=== PATIENT | male | born 1975 | race Caucasian/White ===

== ENCOUNTER → 2021-05-18 14:00 | Outpatient (BNVA) | payer MEDICAID, SELFPAY | PROVIDERS: Referring Provider Internal Medicine; Visit Provider Internal Medicine Gastroenterology | DX: K59.01 Slow transit constipation (principal) | CPT/HCPCS: 99212 ==

== ENCOUNTER 2021-06-01 15:51 | Outpatient (REF) | payer MEDICAID, SELFPAY ==
--- NOTE | ~2021-06-01 | XR_ITS ---
EXAMINATION: XR ABDOMEN KUB CLINICAL INFORMATION: Slow transit, constipation. COMPARISON: None TECHNIQUE: AP view of the abdomen. FINDINGS: There is moderate scattered stool seen throughout the colon without significant distention. There is no organomegaly. No radiopaque calculi are seen. There is no gross bony abnormality. XR/XR KUB IMPRESSION: Moderate constipation.
[2021-06-01 16:32] LABS: MANUAL DIFF FLAG NO
[2021-06-01 16:35] LABS: Basophils Absolute Auto 0.1 X10*3/uL (0.0-0.2); Basophils Percent Auto 0.9 % (0-2); Eosinophils Absolute Auto 0.1 X10*3/uL (0.0-0.4); Eosinophils Percent Auto 1.7 % (0-4); Hematocrit 39.5 % (42-52); Hemoglobin 13.8 g/dl (14.0-18.0); Imm Gran Abs Auto 0.01 X10*3/uL (0.00-0.03); Imm Gran Pct Auto 0.2 % (0.0-0.4); Lymphocytes Absolute Auto 1.7 X10*3/uL (1.2-4.9); Mean Corpuscular HGB Conc 34.9 g/dl (31.0-36.0); Mean Corpuscular Hemoglobin 30.8 pg (27.0-33.0); Mean Corpuscular Volume 88.2 fL (80-98); Mean Platelet Volume 10.2 fL (9.4-12.4); Monocytes Absolute Auto 0.4 X10*3/uL (0.1-1.2); Monocytes Percent Auto 7.3 % (2-11); Neutrophils Absolute Auto 3.1 X10*3/uL (2.0-8.3); Neutrophils Percent Auto 57.9 % (45-73); Platelet Count 175 X10*3/uL (160-400); Red Blood Count 4.48 X10*6/uL (4.60-5.80); Red Cell Distribution Width 12.2 % (11.0-16.0); White Blood Count 5.4 X10*3/uL (4.8-10.8)
[2021-06-01 16:58] LABS: Alanine Aminotransferase 10 U/L (0-40); Albumin Level 4.8 g/dL (3.5-5.0); Alkaline Phosphatase 88 U/L (39-117); Anion Gap 10 (12-20); Aspartate Amino Transferase 16 U/L (5-37); Bilirubin Total 1.1 mg/dL (0.0-1.0); Blood Urea Nitrogen 11 mg/dL (9-16); Calcium 9.6 mg/dL (8.4-10.2); Carbon Dioxide 22 mmol/L (22-29); Chloride 110 mmol/L (96-108); Estimated Glomerular Filt Rate > 60; Glucose Random 96 mg/dL (60-115); Iron 114 mcg/dL (45-160); Sodium 138 mmol/L (135-145); Total Protein 7.5 g/dL (6.5-8.0)
[2021-06-01 17:01] LABS: Percent Iron Saturation 39 % (15-50); Total Iron Binding Capacity 291 mcg/dL (228-428); Unsaturated Iron Binding 177 ug/dL
[2021-06-01 17:20] LABS: Ferritin 394 ng/mL (20-250)
[2021-06-01 17:30] LABS: Folate 11.1 ng/mL (> or = 4.0); Vitamin B12 339 pg/mL (200-900)
[2021-06-01 17:44] LABS: TSH reflex Free T4 1.14 uIU/mL (0.32-4.0); Vitamin D 25-OH Total 17.2 ng/mL (>30)
[2021-06-05 05:17] LABS: Zinc 88 mcg/dL (60-130)
[2021-06-05 16:26] LABS: Vitamin C 0.3 mg/dL (0.2-2.1)
[2021-06-06 00:56] LABS: Vitamin K1 5412 pg/mL (130-1500)
[2021-06-07 04:47] LABS: Vitamin A 80 mcg/dL (38-98)
[2021-06-07 05:21] LABS: Vitamin B6 16.5 ng/mL (2.1-21.7)
[2021-06-07 15:36] LABS: Alpha-Tocopherol 36.2 mg/L (5.7-19.9); Beta-Gamma Tocopherol 2.3 mg/L (<=4.3)
[2021-06-08 10:52] LABS: Nicotinamide 64 ng/mL; Vit B3 - Nicotinic Acid <20 ng/mL
[2021-06-11 21:07] LABS: Vitamin B5 (Pantothenic Acid) 108 ng/mL (<275)
== END 2021-06-01 15:52 | disposition home or self-care (01) ==
LOC: HO.XRAY 15:51
PROVIDERS: Visit Provider Internal Medicine Gastroenterology
DX: K59.01 Slow transit constipation (principal); E46 Unspecified protein-calorie malnutrition; K75.81 Nonalcoholic steatohepatitis (NASH)
CPT/HCPCS: 36415; 74018; 80053; 82180; 82306; 82607; 82728; 82746; 83520; 83540; 84207; 84443; 84446; 84590; 84591; 84597; 84630; 85025

== ENCOUNTER → 2021-07-20 14:40 | Outpatient (BNVA) | payer MEDICAID, SELFPAY | PROVIDERS: Visit Provider Internal Medicine Gastroenterology | DX: K59.01 Slow transit constipation (principal); R10.13 Epigastric pain | CPT/HCPCS: 99212 ==

== ENCOUNTER 2022-05-09 09:48 | Outpatient (REF) | payer MEDICAID, SELFPAY ==
[2022-05-09 11:27] LABS: MANUAL DIFF FLAG NO
[2022-05-09 11:44] LABS: Basophils Percent Auto 0.6 % (0-2); Eosinophils Absolute Auto 0.1 X10*3/uL (0.0-0.4); Eosinophils Percent Auto 0.7 % (0-4); Hematocrit 40.5 % (42.0-52.0); Hemoglobin 13.7 g/dl (14.0-18.0); Imm Gran Abs Auto 0.02 X10*3/uL (0.00-0.03); Imm Gran Pct Auto 0.3 % (0.0-0.4); Lymphocytes Absolute Auto 1.7 X10*3/uL (1.2-4.9); Lymphocytes Percent Auto 25.4 % (20-40); Mean Corpuscular HGB Conc 33.8 g/dl (31.0-36.0); Mean Corpuscular Hemoglobin 29.7 pg (27.0-33.0); Mean Corpuscular Volume 87.9 fL (80.0-98.0); Monocytes Absolute Auto 0.5 X10*3/uL (0.1-1.2); Monocytes Percent Auto 7.8 % (2-11); Neutrophils Absolute Auto 4.4 x10*3/uL (2.0-8.3); Neutrophils Percent Auto 65.2 % (45-73); Platelet Count 238 X10*3/uL (160-400); Red Blood Count 4.61 X10*6/uL (4.60-5.80); Red Cell Distribution Width 11.3 % (11.0-16.0); White Blood Count 6.8 X10*3/uL (4.8-10.8)
[2022-05-09 12:15] LABS: Alanine Aminotransferase 12 U/L (0-40); Albumin Level 5.2 g/dL (3.5-5.0); Alkaline Phosphatase 71 U/L (39-117); Anion Gap 12 (12-20); Aspartate Amino Transferase 13 U/L (5-37); Bilirubin Total 0.6 mg/dL (0.0-1.0); Blood Urea Nitrogen 13 mg/dL (9-16); C Reactive Protein 0.03 mg/dL (< or = 0.50); Calcium 9.9 mg/dL (8.4-10.2); Carbon Dioxide 29 mmol/L (22-29); Chloride 103 mmol/L (96-108); Estimated Glomerular Filt Rate > 60; Glucose Random 114 mg/dL (60-115); Potassium 4.5 mmol/L (3.3-5.1); Sodium 139 mmol/L (135-145); Total Protein 7.9 g/dL (6.5-8.0)
[2022-05-09 12:37] LABS: Ferritin 247 ng/mL (20-250); Vitamin D 25-OH Total 41.5 ng/mL (>30)
[2022-05-09 12:39] LABS: Folate 10.8 ng/mL (> or = 4.0); Vitamin B12 450 pg/mL (200-900)
[2022-05-09 12:50] LABS: Erythrocyte Sedimentation Rate 2 MM/HR (0-15)
[2022-05-13 15:51] LABS: Zinc 77 mcg/dL (60-130)
[2022-05-13 17:01] LABS: Histamine Plasma <1.5 ng/mL (< OR = 1.8)
[2022-05-14 12:11] LABS: Vitamin K1 2500 pg/mL (130-1500)
[2022-05-14 15:32] LABS: Nicotinamide 54 ng/mL; Vit B3 - Nicotinic Acid <20 ng/mL; Vitamin B5 (Pantothenic Acid) 99 ng/mL (<275)
[2022-05-14 18:07] LABS: Vitamin C 0.7 mg/dL (0.2-2.1)
[2022-05-15 11:06] LABS: Vitamin B6 52.5 ng/mL (2.1-21.7)
[2022-05-15 18:17] LABS: Vitamin A 118 mcg/dL (38-98)
[2022-05-17 01:37] LABS: Alpha-Tocopherol 17.1 mg/L (5.7-19.9); Beta-Gamma Tocopherol <1.0 mg/L (<=4.3)
== END 2022-05-09 09:49 | disposition home or self-care (01) ==
LOC: HO.LAB 09:48
PROVIDERS: PCP Internal Medicine; Visit Provider Internal Medicine Gastroenterology
DX: R10.13 Epigastric pain (principal); E46 Unspecified protein-calorie malnutrition; K59.01 Slow transit constipation; R19.7 Diarrhea, unspecified; K75.81 Nonalcoholic steatohepatitis (NASH)
CPT/HCPCS: 36415; 80053; 82180; 82306; 82607; 82728; 82746; 83088; 83520; 84207; 84446; 84590; 84591; 84597; 84630; 85025; 85652; 86140; 99212

== ENCOUNTER → 2022-08-25 08:12 | Outpatient (REF) | payer MEDICAID, SELFPAY ==
--- NOTE | ~2022-08-25 | NM_ITS ---
EXAMINATION: VT RADIONUCLIDE SOLID FOOD GASTRIC EMPTYING 4-HOUR STUDY CLINICAL INFORMATION: Early satiety. COMPARISON: None TECHNIQUE: A standard meal consisting of 4 oz of Egg Beaters brand tagged with 1000 microcuries Tc-99m Sulfur Colloid, 8 oz water and 2 slices of toast with jelly was administered orally to the patient. Images were obtained using a dual head gamma camera in the anterior and posterior projections over of the stomach immediately post ingestion and at hourly intervals up to 4 hours post ingestion. The anterior and posterior counts at each time interval were averaged using the geometric mean and expressed as percentage of the immediate post ingestion counts. FINDINGS: There is good visualization of activity in the stomach immediately post ingestion. As the study progresses, there is good clearance of activity from the stomach and visualization of progressively increasing small bowel activity. By the end of the study, there is almost no retention noted in the stomach. Retention in the stomach at each time interval was: 1 hour 74% (normal 37%-90%) 2 hours 13% (normal 30%-60%) 3 hours 1% Delayed 4 hour images were not obtained since 99% of the radiotracer was emptied out by 3 hours. VT/VT gastric emptying study IMPRESSION: No evidence of any delayed gastric emptying. Note is however made of relatively rapid emptying, of indeterminate etiology.
== END ==
LOC: HO.NUCMED 08:12
PROVIDERS: PCP Internal Medicine; Visit Provider Internal Medicine Gastroenterology
DX: R68.81 Early satiety (principal)
CPT/HCPCS: 78264; A9541

== ENCOUNTER → 2022-09-05 13:07 | Outpatient (BNVA) | payer MEDICAID, SELFPAY | PROVIDERS: PCP Internal Medicine; Visit Provider Internal Medicine Gastroenterology | DX: K92.89 Other specified diseases of the digestive system (principal); K59.00 Constipation, unspecified; R10.33 Periumbilical pain | CPT/HCPCS: 99212 ==

== ENCOUNTER → 2023-01-27 09:24 | Outpatient (BNVA) | payer MEDICAID, SELFPAY | PROVIDERS: PCP Internal Medicine; Visit Provider Internal Medicine Gastroenterology | DX: R10.13 Epigastric pain (principal) | CPT/HCPCS: 99212 ==

== ENCOUNTER 2025-03-13 12:32 | Outpatient (AMB) | payer MEDICAID, SELFPAY ==
--- OUTSIDE RECORDS SUMMARY | 2025-03-13 12:36 | XMS_ITS | Encounter Summary ---
Author Organization [facility] Address [address] [place] [address] Care Team Providers Care Market Research Senior Project Manager Name Role Phone NeyCinthia DMD Primary Care Provider Encounter Details Date Type Department Care Team (Late st Contact Info) Description 01/12/2016 / Visits On license of [facility] [address] [place] [phone] Makenzie Al, COUNSELOR [facility] [place] [address] Social History Tobacco Use Types Packs/Day Years Used Date Smoking Tobacco: Never Smokeless Tobacco: Never Sex and Gender Information Value Date Recorded Sex Assigned at Not on file Legal Sex Male 6:38 AM PDT Gender Identity Not on file Sexual Orientation Not on file documented as of this encounter Plan of Treatment Not on file documented as of this encounter Visit Diagnoses Not on filedocumented in this encounter Care Teams Market Research Senior Project Manager Relationship Specialty Start Date End Date Cinthia Brewster DMD [address] [place] [address] PCP - General 05/16/19 documented as of this encounter
--- OUTSIDE RECORDS SUMMARY | 2025-03-13 12:36 | XMS_ITS | Encounter Summary ---
Author Organization [facility] Address [address] [place] [address] Care Team Providers Care Leaf Conditioner Name Role Phone NeyCristopherCinthia DMD Primary Care Provider [phone] Encounter Details Date Type Department Care Team (Late st Contact Info) Description 06/09/2016 / Visits Counts include 234 beds at the [facility] [address] [place] [phone] Makenzie Al LICSW [address] [place] [address] Social History Tobacco Use Types Packs/Day Years [...] on filedocumented in this encounter Care Teams Leaf Conditioner Relationship Specialty Start Date End Date Cinthia Brewster DMD [address] [place] [address] PCP - General 05/16/19 documented as of this encounter
--- OUTSIDE RECORDS SUMMARY | 2025-03-13 12:36 | XMS_ITS | Encounter Summary ---
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 (Primary Dx); Post traumatic stress disorder (PTSD) Social History Tobacco Use Types Packs/Day Years Used Date Smoking Tobacco: Never Smokeless Tobacco: Never Sex and Gender Information Value Date Recorded Sex Assigned at Not on file Legal Sex Male 6:38 AM PDT Gender Identity Not on file Sexual Orientation Not on file documented as of this encounter Plan of Treatment Not on file documented as of this encounter Visit Diagnoses Diagnosis Other depression due to general medical condition- Primary Depressive disorder, not elsewhere classified Post traumatic stress disorder (PTSD) Posttraumatic stress disorder documented in this encounter Care Teams Gyroscopic Engineering Technician Relationship Specialty Start Date End Date NeyCinthiaGITA [address] [place] [address] PCP - General 05/16/19 documented as of this encounter
--- OUTSIDE RECORDS SUMMARY | 2025-03-13 12:36 | XMS_ITS | Clinical Summary ---
Author Organization [facility] Address [address] [facility] 7 [place] [address] Care Team Providers Care Admin Assistant Name Role Phone Unavailable Primary Care Provider Unavailabl e Allergies No known active allergies Medications dexlansoprazole (Dexilant) [address] capsule dexilant 60 mg cpdr Active gabapentin (Neurontin) 300 MG capsule gabapentin 300 mg caps Active fenofibrate (Triglide) 160 MG tablet TAKE 1 TABLET (160 MG) BY ORAL ROUTE ONCE DAILY 3 Active Social History Tobacco Use Types Packs/Day Years Used Date Smoking Tobacco: Every Day Cigarettes Tobacco Cessation:Ready to Q uit: Not Asked; Counseling Given: Not Answered Sex and Gender Information Value Date Recorded Sex Assigned at Male 11/17/2022 3:52 PM EST Legal Sex Male 3:49 PM EST Gender Identity Male 11/17/2022 3:52 PM EST Sexual Orientation Straight 11/17/2022 3: 52 PM EST Plan of Treatment Health Maintenance Due Date Last Done Comments CT Colonography 1977 Colonoscopy 1977 Colorectal Cancer Screening 1977 Dental Oral Exam 1977 Dental Prophylaxis 1977 Dental X-Ray: Bitewings 1977 Dental X-Ray: Full Mouth 1977 Depression Screening 1977 FIT DNA/Cologuard 1977 FIT 1977 FOBT 1977 HIV Screening 1977 Lipid Panel 1977 SDOH Screening 1977 Sigmoidoscopy 1977 Disability Screening 1977 Alcohol/Substance Use Screening 1989 Tobacco Screening 1989 Family Planning (PISQ) 1992 Hepatitis C Screening 1995 DTaP/Tdap/Td Vaccines (1 - Tdap) 1996 Pneumococcal Vaccine: Pediatrics (0 to 5 Years) and At-Risk Patients (6 to 49) Years) (1 of 2 - PCV) 1996 Hepatitis B Vaccines (2 of 3 - 19+ 3-dose series) 06/07/2013 05/10/2013 COVID-19 Vaccine (3 - 2023- season) 2024 01/23/2021, 12/26/2020 Influenza Vaccine (#1) 2024 , 09/04/2021, 08/05/2020, Additional history exists Zoster Vaccines (1 of 2) 2027 RSV Patients and Patients Aged 60 years or older (1 - 1-dose 75+ series) 2052 HIB Vaccines Aged Out No longer eligi ble based on patient's age to complete this topic HPV Vaccines Aged Out No longer eligi ble based on patient's age to complete this topic Hepatitis A Vaccines Aged Out No long er eligible based on patient's age to complete this topic IPV Vaccines Aged Out No longer eligi ble based on patient's age to complete this topic Meningococcal B Vaccine Aged Out No l onger eligible based on patient's age to complete this topic Meningococcal Vaccine Aged Out No emmy joy eligible based on patient's age to complete this topic RSV under 20 months Aged Out No longe r eligible based on patient's age to complete this topic Rotavirus Vaccines Aged Out No longer eligible based on patient's age to complete this topic Insurance [facility] MEDICAID STAND ADULT
--- OUTSIDE RECORDS SUMMARY | 2025-03-13 12:36 | XMS_ITS | Encounter Summary ---
Author Organization [facility] Address [address] [place] [address] Care Team Providers Care Internal Grinder Set Up Operator Name Role Phone Cinthia Brewster DMD Primary Care Provider Encounter Details Date Type Department Care Team (Late st Contact Info) Description 11/13/2015 Behavioral Health Visit [facility] [address] [place] [phone] Makenzie Al, COUNSELOR [address] [place] [address] Social History Tobacco Use Types Packs/Day Years Used Date Smoking Tobacco: Never Assessed Sex and Gender Information Value Date Recorded Sex Assigned at Not on file Legal Sex Male 6:38 AM PDT Gender Identity Not on file Sexual Orientation Not on file documented as of this encounter Miscellaneous Notes * Patient Instructions - MELISSA Barnes - 07/22/2016 9:10 AM EDT If you are not able to keep your appointment please call [phone] hours before your appointment to cancel or reschedule. documented in this encounter Plan of Treatment Not on file documented as of this encounter Visit Diagnoses Not on filedocumented in this encounter Care Teams Internal Grinder Set Up Operator Relationship Specialty Start Date End Date Cinthia Brewster DMD [address] [place] [address] PCP - General 05/16/19 documented as of this encounter
--- OUTSIDE RECORDS SUMMARY | 2025-03-13 12:36 | XMS_ITS | Clinical Summary ---
Author Organization [facility] Address [address] [place] [address] Care Team Providers Care Fruit Cutter Name Role Phone Cinthia Brewster DMD Primary Care Provider [phone] Source Comments PLEASE NOTE, if this patient is a minor, it may be UNLAWFUL to discuss sensitive information that is contained in these records (such as FAMILY PLANNING, MENTAL HEALTH or SUBSTANCE ABUSE) with the minor patient's parent or other person without the patient's specific authorization.[facility] Allergies No known active allergies Medications clindamycin (CLEOCIN) 150 mg capsuleIndicatio ns:Infection of tooth Take 1 Cap by mouth 3 (three) times daily 21 Cap 09/09/2017 Active clindamycin HCl (CLEOCIN) 150 mg capsuleIndicatio ns:Infection of tooth Take 1 Cap by mouth 3 (three) times daily 21 Cap 11/20/2017 Active Active Problems No known active problems Immunizations Immunization Administration Dates Next Due Hep B, Adult/Adol (ENERGIX/RECOMBIVAX) 3 Moderna COVID-19 Vaccine, re d cap blue label, 12+ Primary Series 01/23/2021,12/26/2020 Social History Tobacco Use Types Packs/Day Years Used Date Smoking Tobacco: Former Cigarettes Smokeless Tobacco: Never Tobacco Cessation:Counseling Given: Not Answered Social Connections Answer Date Recorded Connectedness 0 07/10/2024 Financial Resource Strain Answer Date R ecorded Financial Resource Strain 0 2023 Stress Answer Date Recorded Stress 0 05/02/2024 Physical Activity Answer Date Recorded Physical Activity 0 05/02/2024 Food Insecurity Answer Date Recorded Food 0 07/18/2024 Transportation Needs Answer Date Record ed Transportation 0 05/02/2024 Housing Stability Answer Date Recorded Housing 0 05/02/2024 Safety and Environment Answer Date Pj rded Safety 0 05/02/2024 Utilities Answer Date Recorded Utilities 0 05/02/2024 Employment Answer Date Recorded Stress 0 07/10/2024 Sex and Gender Information Value Date Recorded Sex Assigned at Not on file Legal Sex Male 6:38 AM PDT Gender Identity Not on file Sexual Orientation Not on file Last Filed Vital Signs Vital Sign Reading Time Taken Comments Blood Pressure 113/75 05/13/2024 11:10 AM EDT Pulse 62 05/13/2024 11:10 AM EDT Temperature - - Respiratory Rate - - Oxygen Saturation - - Inhaled Oxygen Concentration - - Weight - - Height - - Body Mass Index - - Plan of Treatment Health Maintenance Due Date Last Done Comments Anxiety Screening 1977 Dental FMX/Pano 1977 Dental Prophy 1977 Diabetes Screening 1977 Hepatitis C Screening 1977 Lipid Screening 1977 HIV Screening 1992 Imm-DTaP/Tdap/Td (1 - Tdap) 1996 Imm-Hepatitis B (2 of 3 - 19 + 3-dose series) 06/07/2013 05/10/2013 CT Colonography 2022 Colonoscopy 2022 Colorectal Cancer Screening 2022 FIT/gFOBT 2022 Fecal DNA 2022 Flexible Sigmoidoscopy 2022 [id number] ( - season) 2024 04/03/2 021, 12/26/2020 Imm-Influenza (#1) 2024 09/04/2021, 1 , 09/24/2017, Additional history exists Alcohol and Drug Screen 10/23/2024 Depression Annual Screen 10/23/2024 Hypertension Screening (#1) 05/13/2025 Tobacco Screening 05/13/2025 05/13/2024 Dental BW 05/15/2025 05/13/2024 Dental Examination 05/15/2025 05/13/2024 Procedures Procedure Name Priority Date/Time Associated Diagnosis Comments BITEWINGS - FOUR RADIOGRAPHIC IMAGES Routine 05/13/2024 11:00 AM EDT Encounter for dental examination Full COMP ORAL EVALUATION - NEW/ESTABLISHED PATIENT Routine 05/13/2024 11:00 AM EDT Encounter for dental examination from Last 3 Months or Most Recently Relevant to Health Maintenance Insurance HEALTH SAFETY [place] [facility] [facility] [place] Care Teams Fruit Cutter Relationship Specialty Start Date End Date Cinthia Brewster DMD [address] [place] [address] PCP - General 05/16/19
--- OUTSIDE RECORDS SUMMARY | 2025-03-13 12:36 | XMS_ITS | Encounter Summary ---
Author Organization [facility] Address [address] [place] [phone] Care Team Providers Care Electronic Communications Technician Name Role Phone Turner Galicia MD Primary Care Provider [phone] Encounter Details Date Type Department Care Team (Late st Contact Info) Description 08/20/2024 4:39 PM EDT Hospital Encounter TH HISTORIC ENCOUNTERS EASTERN CONVERSION ONLY Mohamud Carias, DO [address] [place] [address] Social History Tobacco Use Types Packs/Day Years [...] on filedocumented in this encounter Care Teams Electronic Communications Technician Relationship Specialty Start Date End Date Turner Galicia MD [address] [place] [address] PCP - General Internal Medicine 08/18/18 documented as of this encounter
--- OUTSIDE RECORDS SUMMARY | 2025-03-13 12:36 | XMS_ITS | Clinical Summary ---
Author Organization [address] [place] [address] Address [address] [place] [address] Phone Care Team Providers Care Lubricating Specialist Name Role Phone Turner Galicia MD Primary Care Provider [phone] Encounters Date Type Department Care Team Description 02/11/2025 4:30 PM EDT Treatment [address] [phone] Karen Edwards, PT Chronic bilateral low back pain without sciatica (Primary Dx) 02/03/2025 6:00 PM EDT Treatment [address] [phone] Karen Edwards, PT Chronic bilateral low back pain without sciatica (Primary Dx) 01/21/2025 6:00 PM EDT Treatment [address] [phone] Karen Edwards, PT Chronic bilateral low back pain without sciatica (Primary Dx) 01/15/2025 6:00 PM EDT Treatment [address] [phone] Karen Edwards, PT Chronic bilateral low back pain without sciatica (Primary Dx) 12/16/2024 4:30 PM EST Treatment [address] [phone] Karen Edwards, PT Chronic bilateral low back pain without sciatica (Primary Dx) from Last 3 Months Surgical History Surgery Date Site/Laterality Comments OTHER SURGICAL HISTORY PROCEDURE: HISTORY OTHER; COMMENT: anal sphincterotomy Medical History Medical History Date Comments Abnormal weight loss 03/20/2018 DX:Abnormal weight loss Anal fissure 07/22/2013 DX:Anal fissure Anemia 03/20/2018 DX:Anemia Cervical disc disorder with radiculopathy 03/08/2016 DX:Cervical disc disorder wi th radiculopathy Chronic constipation 06/18/2018 DX:Chronic constipation Eczema 10/09/2013 DX:Eczema Esophageal reflux 06/18/2018 DX:Esophageal reflux History of Helicobacter pylo ri infection 06/25/2015 DX:History of Helicobacter p ylori infection History of hematemesis 06/12/2013 DX:Histor y of hematemesis Inguinal hernia 04/29/2016 DX:Inguinal jamari ia Lumbar herniated disc 09/02/2016 DX:Lumbar herniated disc Lumbosacral radiculopathy at S1 11/18/2015 DX:Lumbosacral radiculopathy at S1 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) 03/08/2016 DX:Major depression in parti al remission (HCC) Memory impairment 10/01/2015 DX:Memory impa irment Social History Tobacco Use Types Packs/Day Years Used Date Smoking Tobacco: Every Day Smokeless Tobacco: Never Sex and Gender Information Value Date Recorded Sex Assigned at Not on file Legal Sex Male 9:41 AM EST Gender Identity Not on file Sexual Orientation Not on file Obstetrics History Plan of Treatment Health Maintenance Due Date Last Done Comments DTaP,Tdap,and Td Vaccines (1 - Tdap) 1996 Pneumococcal Vaccine: Pediatrics (0 to 5 Years) and At-Risk Patients (6 to 64 Years) (1 of 2 - PCV) 1996 Hepatitis B Vaccines (2 of 3 - 19+ 3-dose series) 06/07/2013 05/10/2013 Cholesterol Screening (Lipid Panel) 09/20/2022 Colorectal Cancer Screening: Colonoscopy 09/20/2022 Depression Screening 09/20/2022 HIV Screening 09/20/2022 Hepatitis C Screening 09/20/2022 Social Influencers of Health Screening 09/20/2022 COVID-19 Vaccine (3 - season) 2024 01/23/2021, 12/26/2020 Influenza Vaccine (Season Ended) 2025 09/02/2022, 09/04/2021, 08/05/2020, Additional history exists HIB Vaccines Aged Out No longer eligi [...] on patient's age to complete this topic MMR Vaccines Aged Out No longer eligi ble based on patient's age to complete this topic Meningococcal ACWY Vaccine Aged Out N o longer eligible based on patient's age to complete this topic Meningococcal B Vaccine Aged Out No l onger eligible based on patient's age to complete this topic RSV Immunization Patients Under 20 months Aged Out No longer eligible based on patient's age to complete this topic Varicella Vaccines Aged Out No longer eligible based on patient's age to complete this topic Insurance MEDICAID - [place] Care Teams Lubricating Specialist Relationship Specialty Start Date End Date Turner Galicia MD [address] [place] [address] PCP - General Internal Medicine 08/18/18
[2025-03-13 12:40] VITALS: BP 131/79; PULSE 75; BMI 27.5
--- NOTE | 2025-03-13 12:40 | A.OFFVIS_ITS ---
Vital Signs 03/13/25 12:40 Height 5 ft 8 in Weight 180 lb 12.465 oz BMI 27.5 BP 131/79 Blood Pressure Location Lt brachial Position Sitting Pulse 75 Intake Visit Reasons: GES Intake Note: States that he is having constipation and pains in the stomach. Allergies No Known Allergies [No Known Allergies*] Allergy (Verified 03/13/25 12:40) HPI HPI GES: Details: 49 yr old m with severe back pain and depression, GERD here for f/u RECAP: He ran out of dexilant which was really helping a lot of his gastric symptoms, and I refilled this he had been getting yearly authorizations he had been having nausea, terrible GERD going up to throat level waking him up at night afraid to eat due to this constipation, oxycodone once a day, as well as gabapentin I had tried to get him methylnaltrexone but insurance refused as I had concerns for narcotic bowel syndrome, tried linaclotide instead which helps him go every 2 days, still has bloating he has had inguinal hernia repair in past and ongoing pain, requiring cortisone shots. I had tried to get movantik again but insurance refused and tried amitizia instead which had variable results, then reapplied for movantik which he eventually got I also referred for transcranial stimulation but he wanted to hold off, I thought this might help his mental health and physcial symptoms too He was considering cannabis oil last visit At visit 11/11/19 his depression is getting worse, he feesl not getting benefit from medication needs refills on movantik plan was for claritin and caafate but never received he is still pondering transcranial stimulation still has epigastric pain and discomfort around umbilicus, usu before and after bowel motion constipation ongoing, unsure if the movantik is really helping has urine hesitancy, has to put pressure to get urine out, sometimes gets pain UA was neg as was PSA us ruq--normal when I spoke to him he was having resp sx, and advised to get checked he went to Ed, strep throat which was neg, also had covid testing negative CT done 03/2020- right inguinal swelling, pelvic u/s was normal covid serology neg, I did try him on colchicine for 2 weeks, just in case of FMF but he stopped after 2 weeks as felt no better reviewed GES with rapdi emptying, he does describe dumping like sx with sweats, and headaches after eating usu after eating food INTERIM: He is worried about weight gain over last few years he has ongoing issues wt gas he is taking linaclotide, but even if not taking he goes once a day he has nausea he is taking escitalopram and wellbutrin he takes percocet for back pain, maybe few times a week on average, he still has depression, he has moderate severe regurgitation and heartburn, more constant epigastric pain he has been taking dexilant daily EXAM: GENERAL: The patient is well developed and nontoxic. VITAL SIGNS:see workflow HEENT: Nonicteric sclerae, PERRLA, EOMI. Oropharynx clear. Moist mucous membranes. Conjunctivae appear well perfused. No thyroid mass. CHEST: Chest wall is nontender. HEART: Regular rate and rhythm without murmurs. LUNGS: Clear to auscultation bilaterally. ABDOMEN: Soft, positive bowel sounds, tender mid abdomen, no organomegaly.no flank tenderness SKIN: No rash, no excessive bruising, petechiae, or purpura. NEUROLOGIC: Cranial nerves II-XII intact without motor/sensory deficit. Assessments 1. Rapid gastric emptying and dumping 2. bloating and gas maybe related to diet, meds or functional PLAN: 1/ cont dexilant 2/ US abdo and duplex 3/ EGD with bx for disaccharidases 4/ check labs and nutrients, 5/ maybe nutrition referral [facility] Surgical History History of esophagogastroduodenoscopy (EGD) H/O colonoscopy Family History Mother Heart problem HTN (hypertension) Diabetes Father HTN (hypertension) Heart problem Physical Exam Vital Signs: Last Vital Signs Pulse 75 03/13/25 12:40 BP 131/79 03/13/25 12:40 BMI result Body Mass Index 27.5 Assessment & Plan Assessment & Plan (1) Epigastric abdominal pain: Code(s): R10.13 - Epigastric pain Category: Medical Plan: as above (2) Malnutrition: Code(s): E46 - Unspecified protein-calorie malnutrition Category: Medical Plan: as above (3) Weight gain: Code(s): R63.5 - Abnormal weight gain Category: Medical Plan: as above Orders: Orders US SMA Today R10.13 - Epigastric pain US abdomen complete Today R10.13 - Epigastric pain Complete Blood Count Auto Diff Today E46 - Unspecified protein-calorie malnutrition, R10.13 - Epigastric pain Comprehensive Met. Panel Today E46 - Unspecified protein-calorie malnutrition, K75.81 - Nonalcoholic steatohepatitis (ONTIVEROS), R10.13 - Epigastric pain Hemoglobin A1c Today E46 - Unspecified protein-calorie malnutrition, R10.13 - Epigastric pain C Reactive Protein Today E46 - Unspecified protein-calorie malnutrition, R10.13 - Epigastric pain Erythrocyte Sedimentation Rate Today E46 - Unspecified protein-calorie malnutrition, R10.13 - Epigastric pain Ferritin Today E46 - Unspecified protein-calorie malnutrition, R10.13 - Epigastric pain Magnesium Today E46 - Unspecified protein-calorie malnutrition, R10.13 - Epigastric pain Vitamin A Today E46 - Unspecified protein-calorie malnutrition, R10.13 - Epigastric pain Histamine Plasma Today E46 - Unspecified protein-calorie malnutrition, R10.13 - Epigastric pain Cortisol Random Today R63.5 - Abnormal weight gain TSH reflex Free T4 Today E46 - Unspecified protein-calorie malnutrition, R10.13 - Epigastric pain Vitamin B12 and Folate Today E46 - Unspecified protein-calorie malnutrition, R10.13 - Epigastric pain Vitamin C Today E46 - Unspecified protein-calorie malnutrition, R10.13 - Epigastric pain Vitamin D 25-OH Total Today E46 - Unspecified protein-calorie malnutrition, R10.13 - Epigastric pain Vitamin B1 Today E46 - Unspecified protein-calorie malnutrition, R10.13 - Epigastric pain Vitamin B3 (Niacin) Today E46 - Unspecified protein-calorie malnutrition, R10.13 - Epigastric pain Vitamin B5 (Pantothenic Acid) Today E46 - Unspecified protein-calorie malnutrition, R10.13 - Epigastric pain Vitamin B6 Today E46 - Unspecified protein-calorie malnutrition, R10.13 - Epigastric pain Vitamin K1 Today E46 - Unspecified protein-calorie malnutrition, R10.13 - Epigastric pain Zinc Today E46 - Unspecified protein-calorie malnutrition, R10.13 - Epigastric pain Coding Level of Care Code Est Pt Level 4 (77330) Diagnoses Epigastric abdominal pain R10.13 Malnutrition E46 Weight gain R63.5
== END 2025-03-13 13:13 | disposition home or self-care (01) ==
LOC: HO.HGI 12:33
PROVIDERS: PCP Internal Medicine; Visit Provider Internal Medicine Gastroenterology
DX: R10.13 Epigastric pain (principal); E46 Unspecified protein-calorie malnutrition; R63.5 Abnormal weight gain
CPT/HCPCS: 99214

== ENCOUNTER 2025-03-13 12:32 | Outpatient (REF) | payer MEDICAID, SELFPAY ==
[2025-03-13 13:57] LABS: MANUAL DIFF FLAG NO
[2025-03-13 14:19] LABS: Basophils Percent Auto 0.7 % (0-2); Eosinophils Absolute Auto 0.1 X10*3/uL (0.0-0.4); Eosinophils Percent Auto 2.2 % (0-4); Hematocrit 38.5 % (42.0-52.0); Hemoglobin 13.4 g/dl (14.0-18.0); Imm Gran Abs Auto 0.02 X10*3/uL (0.00-0.03); Imm Gran Pct Auto 0.4 % (0.0-0.4); Lymphocytes Absolute Auto 1.8 X10*3/uL (1.2-4.9); Mean Corpuscular HGB Conc 34.8 g/dl (31.0-36.0); Mean Corpuscular Hemoglobin 30.3 pg (27.0-33.0); Mean Corpuscular Volume 87.1 fL (80.0-98.0); Mean Platelet Volume 10.3 fL (9.4-12.4); Monocytes Absolute Auto 0.5 X10*3/uL (0.1-1.2); Neutrophils Absolute Auto 2.9 x10*3/uL (2.0-8.3); Neutrophils Percent Auto 53.7 % (45-73); Platelet Count 206 X10*3/uL (160-400); Red Blood Count 4.42 X10*6/uL (4.60-5.80); Red Cell Distribution Width 11.9 % (11.0-16.0); White Blood Count 5.4 X10*3/uL (4.8-10.8)
[2025-03-13 14:32] LABS: Estimated Average Glucose 91 mg/dL; Hemoglobin A1C 102.4112 umol/L; Hemoglobin A1c % 4.8 % (<6.0); Total Hemoglobin (HGBA1C) 3539.4351 umol/L
[2025-03-13 14:51] LABS: Alanine Aminotransferase 25 U/L (0-40); Albumin Level 5.2 g/dL (3.5-5.0); Alkaline Phosphatase 83 U/L (39-117); Anion Gap 10 (12-20); Aspartate Amino Transferase 24 U/L (5-37); Bilirubin Total 0.4 mg/dL (0.0-1.0); Blood Urea Nitrogen 17 mg/dL (9-16); C Reactive Protein 0.62 mg/dL (< or = 0.50); Calcium 10.1 mg/dL (8.4-10.2); Carbon Dioxide 26 mmol/L (22-29); Chloride 108 mmol/L (96-108); Estimated Glomerular Filt Rate > 60; Glucose Random 96 mg/dL (60-115); Magnesium 2.1 mg/dL (1.6-2.6); Potassium 4.1 mmol/L (3.3-5.1); Sodium 140 mmol/L (135-145); Total Protein 7.8 g/dL (6.5-8.0)
[2025-03-13 14:55] LABS: Erythrocyte Sedimentation Rate 6 MM/HR (0-15)
[2025-03-13 15:07] LABS: Cortisol Random 4.7 ug/dL; Ferritin 300 ng/mL (20-250); TSH reflex Free T4 0.91 uIU/mL (0.32-4.0); Vitamin D 25-OH Total 31.7 ng/mL (>30)
[2025-03-13 15:18] LABS: Folate 8.2 ng/mL (> or = 4.0); Vitamin B12 380 pg/mL (200-900)
[2025-03-14 05:08] LABS: IgA 114 mg/dL (47-310); IgG 947 mg/dL (600-1640); IgM 116 mg/dL (50-300)
[2025-03-14 06:19] LABS: Class Almond 0; Class Brazil Nut 0; Class Cashew 0; Class Codfish 0; Class Cow's Milk 0; Class Egg white 0; Class Hazelnut 0; Class Macadamia Nut 0; Class Peanut 0; Class Salmon 0; Class Scallop 0; Class Sesame Seed 0; Class Shrimp 0; Class Soybean 0; Class Tuna 0; Class Walnut 0; Class Wheat 0; F001-IgE Egg White <0.10 kU/L; F002-IgE Milk <0.10 kU/L; F003-IgE Codfish <0.10 kU/L; F004-IgE Wheat <0.10 kU/L; F010-IgE Sesame Seed <0.10 kU/L; F013-IgE Peanut <0.10 kU/L; F014-IgE Soybean <0.10 kU/L; F017-IgE Hazelnut (Filbert) <0.10 kU/L; F018-IgE Brazil Nut <0.10 kU/L; F020-IgE Almond <0.10 kU/L; F024-IgE Shrimp <0.10 kU/L; F040-IgE Tuna <0.10 kU/L; F041 IgE Salmon <0.10 kU/L; F202-IgE Cashew Nut <0.10 kU/L; F256-IgE Walnut <0.10 kU/L; F338-IgE Scallop <0.10 kU/L; F345-IgE Macadmia Nut <0.10 kU/L; Immunoglobulin E 40 kU/L (<OR=114)
[2025-03-17 00:29] LABS: Vitamin A 95 mcg/dL (38-98)
[2025-03-17 06:34] LABS: Zinc 60 mcg/dL (60-130)
[2025-03-18 02:02] LABS: Nicotinamide <20 ng/mL (see note); Vit B3 - Nicotinic Acid <20 ng/mL (see note); Vitamin B5 (Pantothenic Acid) 149 ng/mL (<275)
[2025-03-19 03:02] LABS: Vitamin C 0.4 mg/dL (0.2-2.1)
[2025-03-19 14:09] LABS: Vitamin B6 20.3 ng/mL (2.1-21.7)
[2025-03-20 15:03] LABS: Vitamin B1 13 nmol/L (8-30)
[2025-03-20 15:58] LABS: Histamine Plasma <1.5 ng/mL (< OR = 1.8)
== END 2025-03-13 12:33 | disposition home or self-care (01) ==
LOC: HO.LAB 12:32
PROVIDERS: PCP Internal Medicine; Visit Provider Internal Medicine Gastroenterology
DX: R10.13 Epigastric pain (principal); E46 Unspecified protein-calorie malnutrition; R63.5 Abnormal weight gain; K75.81 Nonalcoholic steatohepatitis (NASH); Z91.018 Allergy to other foods
CPT/HCPCS: 36415; 80053; 82180; 82306; 82533; 82607; 82728; 82746; 82784; 82785; 83036; 83088; 83735; 84207; 84425; 84443; 84590; 84591; 84630; 85025; 85652; 86003; 86140; 99212

== ENCOUNTER 2025-03-18 10:01 | Day surgery (SDC) | payer MEDICAID, SELFPAY ==
[2025-03-18 10:21] VITALS: BP 117/65; PULSE 62; RESP 16; TEMP 36.5; O2SAT 96; BMI 27.0
--- NOTE | 2025-03-18 10:24 | P.CONAN_ITS ---
[facility] Active Problems Active Problems: All Active Problems Food allergy (Acute) Weight gain (Acute) Epigastric abdominal pain (Acute) Malnutrition (Acute) Constipation by delayed colonic transit (Acute) Past Medical History Medical History Depression Back pain GERD (gastroesophageal reflux disease) Functional capacity: independent ambulation Family History Family History Mother Heart problem HTN (hypertension) Diabetes Father HTN (hypertension) Heart problem Family history of problems with anesthesia: No Surgical History Surgical History History of esophagogastroduodenoscopy (EGD) H/O colonoscopy History of Problems with Anesthesia: No Social History Social History Advance Directives: No Advance Directives Information Provided: Yes Meds Allergies Allergy/AdvReac Type Severity Reaction Status Date / Time No Known Allergies Allergy Verified 03/13/25 12:40 [No Known Allergies*] Active Medications: Current Medications Lactated Ringer's (Lr) 1,000 mls @ 100 mls/hr IVCONT .Q10H DAVID Home Medications ?Medication ?Instructions ?Recorded ?Confirmed ?Last Taken ?Type fenofibrate 160 mg tablet 160 mg PO DAILY 07/20/21 Unknown History cholecalciferol (vitamin D3) 50 100 mcg PO DAILY 05/09/22 Unknown History mcg (2,000 unit) capsule rosuvastatin 20 mg tablet 20 mg PO DAILY 05/09/22 Unknown History tamsulosin 0.4 mg capsule 0.4 mg PO BEDTIME 05/09/22 Unknown History azelastine 137 mcg (0.1 %) nasal 2 spray intranasal BID 01/27/23 Unknown History spray cyclobenzaprine 10 mg tablet 10 mg PO BEDTIME PRN muscle spasm 01/27/23 Unknown History diclofenac sodium 1 % topical gel 1 ea topical BID-TID 01/27/23 Unknown History fluticasone propionate 50 1 spray intranasal DAILY 01/27/23 Unknown History mcg/actuation nasal spray,suspension ibuprofen 600 mg tablet 600 mg PO DAILY PRN 01/27/23 Unknown History bupropion HCl 100 mg tablet,12 hr 100 mg PO QAM 03/13/25 Unknown History sustained-release escitalopram oxalate 20 mg tablet 20 mg PO BEDTIME 03/13/25 Unknown History gabapentin 100 mg capsule 100 mg PO BID PRN pain 03/13/25 Unknown History Exam Airway Mallampati Class: II TM Dist: >3cm Neck ROM: Full Heart: RRR Lungs: CTA Assessment and Plan Assessment Anesthesia Assessment: Anesthesia Plan Discussed and Smoking Cess. Discussed Final Anesthetic Review Family History of Problems with Anesthesia: No History of Problems with Anesthesia: No NPO: Yes ASA Class: II Final Preanesthetic Review: Meds/Allgs Chart Reviewed, Consent Obtained/Reviewed and Anes Risks/Benef Reviewed Patient Risk: Low Procedure Risk: Low Anesthetic Plan Anesthetic Plan: MAC: Disposition: Standard PACU
[2025-03-18] MEDS: Lactated Ringers 1,000 ML 100 ML IVCONT (10:27)
--- NOTE | 2025-03-18 10:41 | MHC.SHP ---
Pre-Procedural Eval Section A - 24 Hr Update-Section A only Date of Service: 03/18/25 The patient is an INPATIENT: No The patient has been examined within 24 hours of the surgical procedure. The History & Physical has been completed within 30 days and I have reviewed it.: Yes Section B - Complete if H&P > 30 days Chief Complaint: Epigastric pain, Labs Allergies: Allergies Allergy/AdvReac Type Severity Reaction Status Date / Time No Known Allergies Allergy Verified 03/13/25 12:40 [No Known Allergies*] Plan Diagnosis/Plan: Unchanged I have reviewed the history and physical and performed a pertinent physical examination on my patient. No changes have occurred unless specified. EGD for assessement of abdominal sx Time Spent With Patient Time: Total time managing care of this patient today ____ minutes.
--- NOTE | 2025-03-18 11:01 | W.PM.OPN ---
Operative Note Operative Note Date of Service: 03/18/25 Narrative: Procedure Description: EGD Indication: epigastric pain Anesthesia: MAC FLEXIBLE TRANSORAL UPPER GASTROINTESTINAL ENDOSCOPY UPPER ENDOSCOPY Consent: Indications for the procedure and potential complications of bleeding, perforation, reaction to medications and missed diagnosis were discussed with the patient and informed consent was obtained. Instrument: Olympus GIF H 190 J mid size upper endoscope Monitoring: Vital signs and clinical assessment, continuous EKG monitoring, Pulse oximetry, Carbon Dioxide monitoring and blood pressure monitoring were done throughout the procedure. Procedure: The patient was placed in the left lateral decubitis position and pre-procedure medications were administered and a bite block was placed. The endoscope was inserted into the mouth and advanced under direct vision to the third part of duodenum. A careful inspection was made as the upper endoscope was withdrawn including a retroflexed examination of the proximal stomach; Findings and interventions are described below. Findings: Larynx:normal Esophagus: GE junction at 38 cm, diaphragm hiatus at 40 cm, consistent with 2 cm sliding hiatal hernia, with non obstructive schatzki ring noted, bx taken from GEJ, distal and proximal esophagus Stomach: mild erythema . Biopsies were obtained. Grade 2 flap valve on retroflexed examination of the cardia. Duodenum: Normal bulb and descending duodenum, bx taken Intervention: Biopsies as noted above, Impression/Findings: hiatal hernia schatzki ring PLAN: cont with PPI await bx GERD precautions
[2025-03-18 11:07] VITALS: BP 95/52; PULSE 68; RESP 16; TEMP 36.3; O2SAT 98
[2025-03-18 11:20] VITALS: BP 93/56; PULSE 57; RESP 16; O2SAT 98
[2025-03-18 11:30] VITALS: BP 107/65; PULSE 60; RESP 16; TEMP 36.1; O2SAT 98
[2025-03-18 11:39] VITALS: BP 102/65; PULSE 56; RESP 16; O2SAT 98
--- NOTE | 2025-03-18 12:07 | PC.NURSE ---
THIS RN CALLED LAB TO HAVE PATIENT'S BLOOD DRAWN PER ORDERS FROM DR. POWERS PRIOR TO DISCHARGE.
--- NOTE | 2025-03-18 12:09 | HO.POSTANES ---
Post Anesthesia Evaluation Post Anesthesia Evaluation Date of Service: 03/18/25 Vital Signs: Vital Signs Temp Pulse Resp BP Pulse Ox O2 Del Method 03/18/25 11:39 56 16 102/65 98 Room Air 03/18/25 11:30 97 F 60 16 107/65 98 Room Air 03/18/25 11:20 57 16 93/56 L 98 Room Air 03/18/25 11:07 97.4 F 68 16 95/52 L 98 Room Air 03/18/25 10:21 97.7 F 62 16 117/65 96 Room Air Anesthesia: Monitored Mental Status: Awake Pain Control: Satisfactory Nausea/Vomiting: None Hydration: Adequate Anesthesia-Related Issues: No Anes. Related Issues
[2025-03-22 17:32] LABS: Lactase 28.7 (15.0-45.5); Maltase 173.2 (100.0-224.4); Palatinase 15.3 (5.0-26.3); Sucrase 55.1 (25.0-69.9)
[2025-03-23 23:09] LABS: Vitamin K1 833 pg/mL (130-1500)
== END 2025-03-18 12:44 | disposition home or self-care (01) ==
PROVIDERS: PCP Internal Medicine; Visit Provider Internal Medicine Gastroenterology
PROC: 0DJ08ZZ Inspection of Upper Intestinal Tract, Via Natural or Artificial Opening Endoscopic (ICD-10-PCS; CPT 43235; principal; 2025-03-18 12:20)
DX: K22.2 Esophageal obstruction (principal); K44.9 Diaphragmatic hernia without obstruction or gangrene; K21.9 Gastro-esophageal reflux disease without esophagitis; E46 Unspecified protein-calorie malnutrition; R63.5 Abnormal weight gain; R10.13 Epigastric pain; Z79.899 Other long term (current) drug therapy
CPT/HCPCS: 43239; 36415; 82657; 84597; 88305; 88313; 88342; J2704

== ENCOUNTER → 2025-03-18 10:01 | Outpatient (BNV) | payer MEDICAID, SELFPAY | PROVIDERS: PCP Internal Medicine; Visit Provider Internal Medicine Gastroenterology | DX: K22.2 Esophageal obstruction (principal) | CPT/HCPCS: 43239 ==

== ENCOUNTER 2025-06-13 12:15 | Outpatient (REF) | payer MEDICAID, SELFPAY ==
--- OUTSIDE RECORDS SUMMARY | 2024-08-20 16:39 | XMS_ITS | Encounter Summary ---
Author Organization [facility] Address [address] [place] [phone] Care Team Providers Care Foreman Or Supervisor And Operator Name Role Phone Turner Galicia MD Primary Care Provider [phone] Encounter Details Date Type Department Care Team (Late st Contact Info) Description 08/20/2024 4:39 PM EDT Hospital Encounter TH HISTORIC ENCOUNTERS EASTERN CONVERSION ONLY Mohamud Carias, DO [address] [place] [address] Social History Tobacco Use Types Packs/Day Years Used Date Smoking Tobacco: Every Day Smokeless Tobacco: Never Sex and Gender Information Value Date Recorded Sex Assigned at Not on file Legal Sex Male 9:41 AM EST Gender Identity Not on file Sexual Orientation Not on file documented as of this encounter Plan of Treatment Not on file documented as of this encounter Visit Diagnoses Not on filedocumented in this encounter Care Teams Foreman Or Supervisor And Operator Relationship Specialty Start Date End Date Turner Galicia MD [address] [place] [address] PCP - General Internal Medicine 08/18/18 documented as of this encounter
--- NOTE | ~2025-06-13 | US_ITS ---
EXAMINATION: US SMA DOPPLER CLINICAL INFORMATION: Epigastric pain. COMPARISON: Correlated to ultrasound abdomen dated June 13, 2025 TECHNIQUE: Ultrasound along with color Doppler imaging and spectral analysis was performed of the superior mesenteric artery, abdominal aorta at the origin of the superior mesenteric artery, celiac trunk and splenic artery. Performed during fasting. FINDINGS: Abdominal aorta demonstrates a peak systolic velocity 30 cm/s and 52 cm/s in the proximal and distal segments respectively. Celiac trunk: Not identified. Superior mesenteric artery: Normal patency and peak systolic velocity in the proximal segment: 51 cm/s. Splenic artery is patent and peak systolic velocity 46 cm/s. Hepatic artery is patent and peak systolic velocity 60 cm/s. US/US SMA IMPRESSION: Limited examination demonstrated no hemodynamically significant stenosis by ultrasound criteria. Electronically signed by: Tien Camacho MD 06/13/2025 01:46 PM EDT
--- NOTE | ~2025-06-13 | US_ITS ---
EXAMINATION: US ABDOMEN COMPLETE CLINICAL INFORMATION: Epigastric pain.. COMPARISON: Correlated to CT dated March 30, 2020. TECHNIQUE: Real-time ultrasound of the abdomen using grayscale technique. FINDINGS: PANCREAS: No peripancreatic fluid collection. ABDOMINAL AORTA: The mid, and distal segments are normal in caliber. INFERIOR VENA CAVA: Visualized portions are normal. LIVER: Liver measures 19 cm. Coarse echotexture. There is a focal 2.7 cm hyperechoic abnormality in the periphery of the right hepatic lobe. No nodular surface. No intrahepatic biliary ductal dilatation. GALLBLADDER: Fluid-filled. No pericholecystic fluid collection or gallbladder wall thickening. No distention. COMMON BILE DUCT: 3 mm. RIGHT KIDNEY: 11 cm. Normal echotexture. Normal renal cortical thickness. No hydronephrosis . No solid or cystic lesion detected by the technologist.. LEFT KIDNEY: 11 cm. Normal echotexture. Normal renal cortical thickness. No hydronephrosis. No solid or cystic lesion detected by the technologist. SPLEEN: 11 cm. No focal lesion.. FREE FLUID: None. US/US abdomen complete IMPRESSION: Hepatomegaly and likely steatosis. 2.0 cm hyperechoic right hepatic lobe lesion. Statistically may represent hemangioma. Consider dedicated dynamic enhanced MRI liver. No hydronephrosis. No cholelithiasis or choledocholithiasis. No ascites. Electronically signed by: Tien Camacho MD 06/13/2025 01:42 PM EDT
--- OUTSIDE RECORDS SUMMARY | 2025-06-13 12:17 | XMS_ITS | Clinical Summary ---
Author Organization [employer] Address [address] [facility] [address] [place] [address] Care Team Providers Care Buffet Manager Name Role Phone Unavailable Primary Care Provider [...] Years) and At-Risk Patients (6 to 49) Years (1 of 2 - PCV) 1996 Hepatitis B Vaccines (2 of 3 - 19+ 3-dose series) 06/07/2013 05/10/2013 COVID-19 Vaccine (3 - 2023- season) 2024 01/23/2021, 12/26/2020 Influenza Vaccine (#1) 2025 , 09/04/2021, 08/05/2020, Additional history exists Zoster [...] patient's age to complete this topic Insurance [facility] MEDICAID STAND ADULT
--- OUTSIDE RECORDS SUMMARY | 2025-06-13 12:17 | XMS_ITS | Encounter Summary ---
Author Organization [facility] Address [address] [place] [address] Care Team Providers Care Perinatal Director Name Role Phone Cinthia Brewster DMD Primary Care Provider Encounter Details Date Type Department Care Team (Late st Contact Info) Description 11/13/2015 Behavioral Health Visit [facility] [address] [place] [phone] Makenzie Al, COUNSELOR [address] [place] [address] Social History Tobacco Use Types Packs/Day Years [...] on filedocumented in this encounter Care Teams Perinatal Director Relationship Specialty Start Date End Date Cinthia Brewster DMD [address] [place] [address] PCP - General 05/16/19 documented as of this encounter
== END 2025-06-13 12:16 | disposition home or self-care (01) ==
LOC: HO.US 12:15
PROVIDERS: PCP Internal Medicine; Visit Provider Internal Medicine Gastroenterology
DX: R10.13 Epigastric pain (principal)
CPT/HCPCS: 76700; 93976

== ENCOUNTER → 2025-06-13 12:17 | Outpatient (BNV) | payer MEDICAID, SELFPAY | PROVIDERS: PCP Internal Medicine; Visit Provider Radiology Diagnostic Radiology | DX: R16.0 Hepatomegaly, not elsewhere classified (principal); R10.13 Epigastric pain | CPT/HCPCS: 76700; 93976 ==

== ENCOUNTER 2025-06-30 13:00 | Outpatient (AMB) | payer MEDICAID, SELFPAY ==
--- OUTSIDE RECORDS SUMMARY | 2024-08-20 16:39 | XMS_ITS | Encounter Summary ---
Author Organization [facility] Address [address] [place] [phone] Care Team Providers Care Auto Damage Estimator Name Role Phone Turner Galicia MD Primary Care Provider Encounter Details Date Type Department Care Team (Late st Contact Info) Description 08/20/2024 4:39 PM EDT Hospital Encounter TH HISTORIC ENCOUNTERS EASTERN CONVERSION ONLY Mohamud Carias, DO [address] [place] [address] Social History Tobacco Use Types Packs/Day Years [...] Info) Description 07/22/2025 3:00 PM EDT Evaluation [address] [phone] Karen Edwards PT documented as of this encounter Visit Diagnoses Not on filedocumented in this encounter Care Teams Auto Damage Estimator Relationship Specialty Start Date End Date Turner Galicia MD [address] [place] [address] PCP - General Internal Medicine 08/18/18 documented as of this encounter
--- NOTE | 2025-06-30 13:07 | A.OFFVIS_ITS ---
Vital Signs 06/30/25 13:09 Height 5 ft 8 in Weight 176 lb 5.917 oz BMI 26.8 BP 104/66 Blood Pressure Location Lt brachial Position Sitting Pulse 66 Intake Visit Reasons: 3 month Intake Note: Luiz presents in the office as a 3 month follow up. CC: States that he is having issues with pains in his stomach. Sign Hanger Supervisor Required: No Allergies No Known Allergies (No Known Allergies*) Allergy (Verified 06/30/25 13:09) HPI HPI 3 month: Details: 50 yr old m with severe back pain and depression, GERD here for f/u RECAP: He ran out of dexilant which was really helping a lot of his gastric symptoms, and I refilled this he had been getting yearly authorizations he had been having nausea, terrible GERD going up to throat level waking him up at night afraid to eat due to this constipation, oxycodone once a day, as well as gabapentin I had tried to get him methylnaltrexone but insurance refused as I had concerns for narcotic bowel syndrome, tried linaclotide instead which helps him go every 2 days, still has bloating he has had inguinal hernia repair in past and ongoing pain, requiring cortisone shots. I had tried to get movantik again but insurance refused and tried amitizia instead which had variable results, then reapplied for movantik which he eventually got I also referred for transcranial stimulation but he wanted to hold off, I thought this might help his mental health and physcial symptoms too He was considering cannabis oil last visit At visit 11/11/19 his depression is getting worse, he feesl not getting benefit from medication needs refills on movantik plan was for claritin and caafate but never received he is still pondering transcranial stimulation still has epigastric pain and discomfort around umbilicus, usu before and after bowel motion constipation ongoing, unsure if the movantik is really helping has urine hesitancy, has to put pressure to get urine out, sometimes gets pain UA was neg as was PSA us ruq--normal when I spoke to him he was having resp sx, and advised to get checked he went to Ed, strep throat which was neg, also had covid testing negative CT done 03/2020- right inguinal swelling, pelvic u/s was normal covid serology neg, I did try him on colchicine for 2 weeks, just in case of FMF but he stopped after 2 weeks as felt no better reviewed GES with rapdi emptying, he does describe dumping like sx with sweats, and headaches after eating usu after eating food EGD 03/16: schatzki ring, hiatal hernia INTERIM: He has pain in the left upper side worse with bending to the side and coughing makes it worse feels like a wound denies nausea or vomiting sometimes it can be worse with food he has ongoign regurgitation he takes linaclotide prn still on dexilant US: liver lesion, fatty liver as well EXAM: GENERAL: The patient is well developed and nontoxic. VITAL SIGNS:see workflow HEENT: Nonicteric sclerae, PERRLA, EOMI. Oropharynx clear. Moist mucous memb ranes. Conjunctivae appear well perfused. No thyroid mass. CHEST: Chest wall is nontender. HEART: Regular rate and rhythm without murmurs. LUNGS: Clear to auscultation bilaterally. ABDOMEN: Soft, positive bowel sounds, tender mid abdomen, no organomegaly.no flank tenderness SKIN: No rash, no excessive bruising, petechiae, or purpura. NEUROLOGIC: Cranial nerves II-XII intact without motor/sensory deficit. Assessments 1. Rapid gastric emptying and dumping 2. bloating and gas maybe related to diet, meds or functional --eats red meat 5 times a week 3. LUQ pain, uncertain etiology --maybe myofascial or referred from back PLAN: 1/ cont dexilant 2/ await mri liver 3/ nutriton referral for low fat diet 4/ trail of baclofen for regurg 5/ advised to stop smoking [facility] Medical History Depression Back pain GERD (gastroesophageal reflux disease) Surgical History History of esophagogastroduodenoscopy (EGD) H/O colonoscopy Family History Mother Heart problem HTN (hypertension) Diabetes Father HTN (hypertension) Heart problem Social History Patient Tobacco Use Status: Current someday Tobacco user Tobacco use type: Cigarette Physical Exam Vital Signs: Last Vital Signs Pulse 66 06/30/25 13:09 BP 104/66 06/30/25 13:09 BMI result Body Mass Index 26.8 Assessment & Plan Assessment & Plan (1) Weight gain: Code(s): R63.5 - Abnormal weight gain Category: Medical Plan: as above (2) Liver lesion: Code(s): K76.9 - Liver disease, unspecified Category: Medical Plan: as above Orders: Referrals Bilingual [employer] Psychologist Nutrition Referral K76.9 - Liver disease, unspecified, R63.5 - Abnormal weight gain Medications: New baclofen 10 mg PO BEDTIME 30 tabs 1RF Coding Level of Care Code Est Pt Level 4 (32835) Diagnoses Weight gain R63.5 Liver lesion K76.9
[2025-06-30 13:09] VITALS: BP 104/66; PULSE 66; BMI 26.8
--- OUTSIDE RECORDS SUMMARY | 2025-06-30 15:09 | XMS_ITS | Clinical Summary ---
Author Organization [address] [facility] Address [address] [place] [address] Phone Care Team Providers Care Dimensional Inspector Name Role Phone Turner Galicia MD Primary Care Provider [phone] Surgical History Surgery Date Site/Laterality Comments OTHER [...] on file Obstetrics History Plan of Treatment Upcoming Encounters Date Type Department Care Team ([facility] st Contact Info) Description 07/22/2025 3:00 PM EDT Evaluation [facility] [address] [phone] Karen Edwards, [place] Health Maintenance Due Date Last Done Comments DTaP,Tdap,and Td Vaccines (1 - Tdap) 1996 Pneumococcal Vaccine: Pediatrics (0 to 5 Years) and At-Risk Patients (6 to 49 Years) (1 of 2 - PCV) 1996 Hepatitis B Vaccines (2 of 3 - 19+ 3-dose series) 06/07/2013 05/10/2013 Cholesterol Screening (Lipid Panel) 09/20/2022 Colorectal Cancer Screening: Colonoscopy 09/20/2022 HIV Screening 09/20/2022 Hepatitis C Screening 09/20/2022 Social Influencers of Health Screening 09/20/2022 Depression Screening 10/23/2024 COVID-19 Vaccine (3 - season) 2025 01/23/2021, 12/26/2020 Influenza Vaccine (#1) 2025 2, 09/04/2021, 08/05/2020, Additional history exists HIB Vaccines [...] topic Insurance MEDICAID - [place] Care Teams Dimensional Inspector Relationship Specialty Start Date End Date Turner Galicia MD [address] [place] [address] PCP - General Internal Medicine 08/18/18
--- OUTSIDE RECORDS SUMMARY | 2025-06-30 15:09 | XMS_ITS | Clinical Summary ---
Author Organization [employer] Address [address] [facility] 7 [place] [address] Care Team Providers Care Sorter Pricer Name Role Phone Unavailable Primary Care Provider [...] series) 06/07/2013 05/10/2013 COVID-19 Vaccine (3 - 2024- season) 2025 01/23/2021, 12/26/2020 Influenza Vaccine (#1) 2025 , [...] patient's age to complete this topic Insurance [facility] MEDICAID STAND ADULT
== END 2025-06-30 13:47 | disposition home or self-care (01) ==
LOC: HO.HGI 13:01
PROVIDERS: PCP Internal Medicine; Visit Provider Internal Medicine Gastroenterology
DX: R63.5 Abnormal weight gain (principal); K76.9 Liver disease, unspecified
CPT/HCPCS: 99214

== ENCOUNTER → 2025-06-30 13:00 | Outpatient (BNVA) | payer MEDICAID, SELFPAY | PROVIDERS: PCP Internal Medicine; Visit Provider Internal Medicine Gastroenterology | DX: K63.5 Polyp of colon (principal); K76.9 Liver disease, unspecified | CPT/HCPCS: 99212 ==

== ENCOUNTER 2025-07-10 15:41 | Outpatient (REF) | payer MEDICAID, SELFPAY ==
--- OUTSIDE RECORDS SUMMARY | 2024-08-20 16:39 | XMS_ITS | Encounter Summary ---
Author Organization [facility] Address [address] [place] [phone] Care Team Providers Care Combat Systems Officer Name Role Phone Turner Galicia MD Primary Care Provider [phone] Encounter Details Date Type Department Care Team (Late st Contact Info) Description 08/20/2024 4:39 PM EDT Hospital Encounter TH HISTORIC ENCOUNTERS EASTERN CONVERSION ONLY Mohamud Carias, DO [address] [place] [address] Social History Tobacco Use Types Packs/Day Years Used Date Smoking Tobacco: Every Day Smokeless Tobacco: Never Sex and Gender Information Value Date Recorded Sex Assigned at Not on file Legal Sex Male 9:41 AM EST Gender Identity Not on file Sexual Orientation Not on file documented as of this encounter Plan of Treatment Upcoming Encounters Date Type Department Care Team (Late st Contact Info) Description 07/22/2025 3:00 PM EDT Evaluation [address] [phone] Karen Edwards PT documented as of this encounter Visit Diagnoses Not on filedocumented in this encounter Care Teams Combat Systems Officer Relationship Specialty Start Date End Date Turner Galicia MD [address] [place] [address] PCP - General Internal Medicine 08/18/18 documented as of this encounter
--- NOTE | ~2025-07-10 | MR_ITS ---
EXAMINATION: MR ABDOMEN WITHOUT THEN WITH IV CONTRAST CLINICAL INFORMATION: lesion in liver seen on US COMPARISON: Abdominal ultrasound on June 13, 2025 describes focal 2.7 cm hyperechoic abnormality in the periphery of the right hepatic lobe . Abdomen/pelvis CT on March 30, 2020. TECHNIQUE: MR abdomen was performed without and with use of 8 cc intravenous Gadavist gadolinium contrast. Postcontrast images are performed in multiphase dynamic sequences. Imaging was performed in 3 planes. FINDINGS: LOWER THORAX: Lung bases are clear. No pleural effusion. LIVER: Hepatomegaly (20.3 cm). There is a vague area of T2 hyperintensity measuring 2.5 x 2.1 cm in the segment IV (5:18/43, 3:12/34) that likely correlates with the sonographic finding. Evaluation of the segment IV is partially limited in some sequences due to artifact from the duodenum filled with ingested content located immediately inferiorly. Allowing to this limitation, there is at least a partial drop in signal on the [id number] sequence compared to the in-phase sequence (9:38/88). This segment IV area shows mild T1 hypointensity and does not show enhancement following administration of intravenous contrast. No suspicious arterially enhancing hepatic lesions. GALLBLADDER/BILIARY TREE: Contracted gallbladder. No biliary ductal dilatation. PANCREAS: Unremarkable. SPLEEN: No focal lesions. No splenomegaly. ADRENAL GLANDS: No nodules. KIDNEYS AND URETERS: No solid renal lesions or hydronephrosis. GASTROINTESTINAL TRACT: Stomach and duodenum are physiologically distended with ingested content. PERITONEUM/RETROPERITONEUM: No free fluid. ABDOMINAL WALL: Unremarkable LYMPH NODES: No lymphadenopathy. VASCULAR: No abdominal aortic aneurysm. OSSEOUS STRUCTURES: Unremarkable MR/MR abdomen wo/w con IMPRESSION: Nonenhancing segment IV hepatic area, with signal characteristics suggestive of at least partial fat content, favoring focal fat infiltration. No hepatic lesions with features of hemangioma. The sonographic finding likely correlates with this area of abnormal signal on the segment IV. A 6 month follow-up ultrasound could be considered for reevaluation. Electronically signed by: Maru Maurice MD 07/10/2025 05:36 PM EDT
--- OUTSIDE RECORDS SUMMARY | 2025-07-10 16:57 | XMS_ITS | Clinical Summary ---
Author Organization [facility] Address [address] [place] [address] Care Team Providers Care Speed Operator Name Role Phone Cinthia Brewster DMD Primary Care Provider [phone] Source Comments PLEASE NOTE, if this patient [...] Administration Dates Next Due Hep B, Adult/Adol ([id number]/RECOMBIVAX-AD ULT) 05/10/2013 Moderna COVID-19 Vaccine, re d cap blue [...] Hepatitis C Screening 1977 Lipid Screening 1977 Tobacco Screening 1977 HIV Screening 1992 Imm-DTaP/Tdap/Td (1 - Tdap) 1996 Imm-Hepatitis B (2 of 3 - 19 + 3-dose series) 06/07/2013 05/10/2013 CT Colonography 2022 Colonoscopy 2022 Colorectal Cancer Screening 2022 FIT/gFOBT 2022 Fecal DNA 2022 Flexible Sigmoidoscopy 2022 Alcohol and Drug Screen 10/23/2024 Depression Annual Screen 10/23/2024 Hypertension Screening (#1) 05/13/2025 Dental BW 05/15/2025 05/13/2024 Dental Examination 05/15/2025 05/13/2024 [id number] ( season) 2025 04/03/2 021, 12/26/2020 Imm-Influenza (#1) 2025 09/04/2021, 1 , 09/24/2017, Additional history exists Procedures Procedure Name Priority Date/Time Associated Diagnosis Comments BITEWINGS - FOUR RADIOGRAPHIC IMAGES Routine 05/13/2024 11:00 AM EDT Encounter for dental examination Full COMP ORAL EVALUATION - NEW/ESTABLISHED PATIENT Routine 05/13/2024 11:00 AM EDT Encounter for dental examination from Last 3 Months or Most Recently Relevant to Health Maintenance Insurance HEALTH SAF[employer]Y NET DENTAL [facility] [place] Care Teams Speed Operator Relationship Specialty Start Date End Date Cinthia Brewster DMD [address] [place] [address] PCP - General 05/16/19
--- OUTSIDE RECORDS SUMMARY | 2025-07-10 16:57 | XMS_ITS | Encounter Summary ---
Author Organization [facility] Address [address] [id number] Care Team Providers Care Manager Demand Name Role Phone Ney Cinthiajoleen PELAYO Primary Care Provider [phone] Reason for Visit * Reason Comments Behavioral Health Assessment Client is a self refferal for Depression and PTSD Encounter Details Date Type Department Care Team (Late st Contact Info) Description 12/29/2015 / Visits [address] [phone] Makenzie Al, COUNSELOR [address] [place] [id number] Social History Tobacco Use Types Packs/Day Years [...] disorder documented in this encounter Care Teams Manager Demand Relationship Specialty Start Date End Date Cinthia Brewster DMD [address] [place] [address] PCP - General 05/16/19 documented as of this encounter
--- OUTSIDE RECORDS SUMMARY | 2025-07-10 16:57 | XMS_ITS | Encounter Summary ---
Author Organization [facility] Address [address] [place] [address] Care Team Providers Care Furnace Hand Name Role Phone Cinthia Brewster DMD Primary Care Provider Encounter Details Date Type Department Care Team (Late st Contact Info) Description 11/13/2015 Behavioral Health Visit [facility] [address] [place] [phone] Makenzie Al, COUNSELOR [address] [place] [address] Social History Tobacco Use Types Packs/Day Years [...] on filedocumented in this encounter Care Teams Furnace Hand Relationship Specialty Start Date End Date Cinthia Brewster DMD [address] [place] [address] PCP - General 05/16/19 documented as of this encounter
--- OUTSIDE RECORDS SUMMARY | 2025-07-10 16:57 | XMS_ITS | Encounter Summary ---
Author Organization [facility] Address [address] [place] [address] Care Team Providers Care Rail Equipment Operator Name Role Phone NeyCinthia DMD Primary Care Provider [phone] Encounter Details Date Type Department Care Team (Late st Contact Info) Description 01/12/2016 / Visits [facility] [address] [place] [phone] Makenzie Al, COUNSELOR [facility] [place] [address] Social History Tobacco Use Types Packs/Day Years [...] on filedocumented in this encounter Care Teams Rail Equipment Operator Relationship Specialty Start Date End Date Cinthia Brewster DMD [address] [place] [address] PCP - General 05/16/19 documented as of this encounter
--- OUTSIDE RECORDS SUMMARY | 2025-07-10 16:57 | XMS_ITS | Clinical Summary ---
Author Organization [address] [facility] Address [address] [place] [address] Phone Care Team Providers Care Stage Rigger Name Role Phone Turner Galicia MD Primary Care Provider [phone] Surgical History Surgery Date Site/Laterality Comments OTHER [...] Upcoming Encounters Date Type Department Care Team ([facility] st Contact Info) Description 07/22/2025 3:00 PM EDT Evaluation [facility] [address] [phone] Karen Edwards, [place] Health Maintenance [...] topic Insurance MEDICAID - [place] Care Teams Stage Rigger Relationship Specialty Start Date End Date Turner Galicia MD [address] [place] [address] PCP - General Internal Medicine 08/18/18
--- OUTSIDE RECORDS SUMMARY | 2025-07-10 16:57 | XMS_ITS | Clinical Summary ---
Author Organization [employer] Address [address] [facility] [address] [place] [address] Care Team Providers Care French Comber Name Role Phone Unavailable Primary Care Provider [...] patient's age to complete this topic Insurance DENTAL-[facility] MEDICAID STAND ADULT
--- OUTSIDE RECORDS SUMMARY | 2025-07-10 16:57 | XMS_ITS | Encounter Summary ---
Author Organization [facility] Address [address] [place] [address] Care Team Providers Care Sec Reporting Consultant Name Role Phone NeyCristopherCinthia DMD Primary Care Provider Encounter Details Date Type Department Care Team (Late st Contact Info) Description 06/09/2016 / Visits [facility] [address] [place] [phone] Makenzie Al LICSW [address] [place] [address] Social History Tobacco Use Types Packs/Day Years [...] on filedocumented in this encounter Care Teams Sec Reporting Consultant Relationship Specialty Start Date End Date Cinthia Brewster DMD [address] [place] [address] PCP - General 05/16/19 documented as of this encounter
== END 2025-07-10 15:42 | disposition home or self-care (01) ==
LOC: HO.MRI 15:41
PROVIDERS: PCP Internal Medicine; Visit Provider Internal Medicine Gastroenterology
DX: K76.9 Liver disease, unspecified (principal)
CPT/HCPCS: 74183; A9585

== ENCOUNTER → 2025-07-10 15:41 | Outpatient (BNV) | payer MEDICAID, SELFPAY | PROVIDERS: PCP Internal Medicine; Visit Provider Radiology Body Imaging | DX: R93.2 Abnormal findings on diagnostic imaging of liver and biliary tract (principal) | CPT/HCPCS: 74183 ==